=== PATIENT | male | born 1965 | race African-American/Black ===

== ENCOUNTER 2021-04-22 16:30 | Emergency (ER) | payer MEDICAID ==
[~2021-04-22] VITALS: Ht 177.8 cm; Wt 75.0 kg
[2021-04-22] MEDS ORDERED: PERMETHRIN 5% CREAM 60GM TOP ONE (17:00)
[2021-04-22] MEDS ORDERED: CLINDAMYCIN HCL 150MG CAPSULE PO ONE (19:00)
[2021-04-22 20:00] VITALS: BP 140/73
[2021-04-22] MEDS ORDERED: CLINDAMYCIN HCL 150MG CAPSULE PO NR (20:30)
[2021-04-22] MEDS ORDERED: CLIN300C12 MT (20:32)
[2021-04-22] MEDS ORDERED: TOPUD PO (20:33)
[2021-04-22] MEDS ORDERED: IBUP-2028 MT (20:33)
[2021-04-22] MEDS ORDERED: KETOROLAC 60MG/2ML VIAL IM ONE (20:45)
[2021-04-22] MEDS ORDERED: BACITRACIN/POLYMYXIN B SULFATE OINT 15GM TOP ONE (20:45)
== END 2021-04-23 01:00 | disposition home or self-care (01) ==
LOC: ER 16:30
DX: B86 Scabies (principal)
CPT/HCPCS: 96372; 99283; J1885